=== PATIENT | female | born 1940 | race Caucasian/White ===

== ENCOUNTER 2018-04-16 13:05 | Inpatient (IN) | payer MEDICARE, BC ==
[~2018-04-16] VITALS: Ht 144.8 cm; Wt 78.7 kg
[2018-04-29 09:48] LABS: MEAN CELL VOLUME 77 fl (80.0-100.0); MEAN CORPUSCULAR HGB CONC 30 g/dl (33.0-37.0); MEAN PLATELET VOLUME 10.4 fl (7.4-10.4); PLATELET COUNT 371 K/mm3 (130-400); REDCELL DISTRIBUTION WIDTH-CV 17.4 % (11.5-14.5)
[2018-04-29 09:50] LABS: INR 1.8 (0.8-3.0); PROTHROMBIN TIME 20.2 SECONDS (9.7-12.8)
[2018-04-29 09:55] LABS: ALBUMIN 3.7 gm/dL (3.5-5.0); BILIRUBIN,TOTAL 0.6 mg/dL (0.0-1.0); CALCIUM 8.3 mg/dL (8.4-10.2); CREATININE, serum 0.75 mg/dL (0.52-1.25); POTASSIUM 3.5 mmol/L (3.4-5.0); TOTAL PROTEIN 7.9 gm/dL (6.4-8.2)
[2018-04-29 09:57] LABS: HEMATOCRIT 27.1 % (37.0-47.0); HEMOGLOBIN 8.2 g/dl (12.5-16.0); MEAN CORPUSCULAR HEMOGLOBIN 23 pg (27.0-31.0)
[2018-04-29 10:02] LABS: MAGNESIUM 0.9 mg/dL (1.6-2.3)
[2018-04-29 10:14] VITALS: BP 148/67; PULSE 95; TEMP 98.1
[2018-04-29] MEDS ORDERED: ELIQUIS 5MG PO (10:22)
[2018-04-29] MEDS ORDERED: NEXIUM 40MG40 MG PO (10:26)
[2018-04-29] MEDS ORDERED: K-DUR 10 MEQ T10 MEQ PO (10:27)
[2018-04-29] MEDS ORDERED: DIOVAN/HCT 12.51 TAB PO (10:28)
[2018-04-29] MEDS ORDERED: NORVASC 5MG5 MG/TAB PO (10:28)
[2018-04-29 10:31] LABS: BAND 10 % (0-10); BASOPHIL 1 % (0-2); EOSINOPHIL 1 % (0-4); LYMPHOCYTE 19 % (20.0-51.0); NEUTROPHILS 68 % (42.0-75.2); NUCLEATED RED BLOOD CELL 1 (0-6)
[2018-04-29 10:34] LABS: ANISOCYTOSIS 2+; PLATELET ESTIMATE NORMAL (NORMAL)
[2018-04-29 10:49] VITALS: BP 135/73; PULSE 99; TEMP 98.1
[2018-04-29 15:11] VITALS: BP 104/81; PULSE 80; TEMP 98.1
[2018-04-29 19:38] VITALS: BP 148/73; PULSE 83; TEMP 98.5
[2018-04-30] VITALS (13 sets, daily range): BP systolic 118–170; BP diastolic 57–81; PULSE 63–80; TEMP 98.1–99.6
[2018-04-30 07:29] LABS: MEAN CELL VOLUME 79 fl (80.0-100.0); MEAN CORPUSCULAR HGB CONC 30 g/dl (33.0-37.0); MEAN PLATELET VOLUME 9.9 fl (7.4-10.4); PLATELET COUNT 410 K/mm3 (130-400); RED BLOOD COUNT 3.54 M/mm3 (4.10-5.30); REDCELL DISTRIBUTION WIDTH-CV 18.1 % (11.5-14.5)
[2018-04-30 07:30] LABS: HEMATOCRIT 27.8 % (37.0-47.0); HEMOGLOBIN 8.2 g/dl (12.5-16.0); MEAN CORPUSCULAR HEMOGLOBIN 23 pg (27.0-31.0)
[2018-04-30 08:03] LABS: BAND 1 % (0-10); EOSINOPHIL 2 % (0-4); LYMPHOCYTE 11 % (20.0-51.0); METAMYELOCYTE 1 % (0-0); MYELOCYTE 3 % (0-0); NEUTROPHILS 80 % (42.0-75.2); PLATELET ESTIMATE INCREASED (NORMAL); POLYCHROMASIA 2+
[2018-04-30 08:04] LABS: ANISOCYTOSIS 2+
[2018-05-01 04:03] VITALS: PULSE 85; TEMP 98.6
[2018-05-01 08:18] VITALS: BP 144/74; PULSE 74; TEMP 98
[2018-05-01] MEDS ORDERED: BETAPACE 80MG80 MG PO (11:13)
[2018-05-01 13:16] VITALS: BP 132/81; PULSE 87; TEMP 98.7
== END 2018-05-01 12:30 | disposition home or self-care (01) | DRG 227 ==
LOC: MEDICAL 04-29 09:03
PROVIDERS: Nurse Practitioner
PROC: 0JH608Z Insertion of Defibrillator Generator into Chest Subcutaneous Tissue and Fascia, Open Approach (ICD-10-PCS; principal; 2018-04-30)
PROC: 02HK3KZ Insertion of Defibrillator Lead into Right Ventricle, Percutaneous Approach (ICD-10-PCS; 2018-04-30)
PROC: 02H63KZ Insertion of Defibrillator Lead into Right Atrium, Percutaneous Approach (ICD-10-PCS; 2018-04-30)
DX: I47.2 Ventricular tachycardia (principal); I50.32 Chronic diastolic (congestive) heart failure; I48.0 Paroxysmal atrial fibrillation; I11.0 Hypertensive heart disease with heart failure; D64.9 Anemia, unspecified; Z86.73 Personal history of transient ischemic attack (TIA), and cerebral infarction without residual deficits; Z79.01 Long term (current) use of anticoagulants; I34.0 Nonrheumatic mitral (valve) insufficiency
CPT/HCPCS: J0690; J2250; J3010; J3475; J7030

== ENCOUNTER 2019-06-03 09:46 | Inpatient (IN) | payer MEDICARE, MEDICAID ==
[~2019-06-03 09:46] MED LIST: BETAPACE 80MG80 MG PO; DIOVAN/HCT 12.51 TAB PO; ELIQUIS 5MG PO; K-DUR 10 MEQ T10 MEQ PO; NEXIUM 40MG40 MG PO; NORVASC 5MG5 MG/TAB PO
[2019-06-13 08:50] VITALS: BP 151/71; PULSE 77; TEMP 97.9
--- NOTE | 2019-06-13 09:15 | NUR ---
Pt admitted to medical unit rm 356, ambulates into with walker, steady gait, A&O x 3, hard of hearing. Heart sounds irregular. Breath sounds CTAB, BS active x 4. Edema to bilat lower ext. Pt reports pain with touch to bilat lower ext. No further needs reported. Call light in reach.
[2019-06-13 11:28] VITALS: BP 147/81; PULSE 72; TEMP 97.8
[2019-06-13 12:03] LABS: BASO % 0.4 % (0.0-2.0); EOS # 0.1 (0.0-0.7); EOS % 3.7 % (0-4.0); GRAN # 1.4 (1.4-6.5); GRAN % 58.2 % (42.2-75.2); LYMPH # 0.7 (1.2-3.4); LYMPH % 28.2 % (20.0-51.0); MEAN CELL VOLUME 100 fl (80.0-100.0); MEAN CORPUSCULAR HEMOGLOBIN 30 pg (27.0-31.0); MEAN CORPUSCULAR HGB CONC 30 g/dl (33.0-37.0); MEAN PLATELET VOLUME 11.3 fl (7.4-10.4); MONO # 0.2 (0.1-0.6); MONO % 9.1 % (1.7-9.3); PLATELET COUNT 196 K/mm3 (130-400); RED BLOOD COUNT 3.35 M/mm3 (4.10-5.30); REDCELL DISTRIBUTION WIDTH-CV 17.1 % (11.5-14.5)
[2019-06-13 12:04] LABS: HEMATOCRIT 33.5 % (37.0-47.0)
[2019-06-13 12:10] LABS: INR 1.3 (0.8-3.0); PROTHROMBIN TIME 15.4 SECONDS (9.7-12.8)
[2019-06-13 12:12] LABS: BILIRUBIN,TOTAL 0.4 mg/dL (0.0-1.0); CALCIUM 7.9 mg/dL (8.4-10.2); CREATININE, serum 1.2 (0.52-1.25); MAGNESIUM 1.2 mg/dL (1.6-2.3); POTASSIUM 4.6 mmol/L (3.4-5.0); TOTAL PROTEIN 6.9 gm/dL (6.4-8.2)
[2019-06-13 12:42] LABS: THYROID STIMULATING HORMONE 2.09 uIU/mL (0.465-4.680)
[2019-06-13] MEDS ORDERED: TYLENOL 325MG325 MG PO (15:40)
[2019-06-13] MEDS ORDERED: PROAIR HFA0.09 MG/AC IH (15:41)
[2019-06-13] MEDS ORDERED: AMOXICILLIN 50500 MG PO (15:42)
[2019-06-13] MEDS ORDERED: OSCAL W/VIT D250 MG PO (15:44)
[2019-06-13] MEDS ORDERED: COREG 6.256.25 MG/TA PO (15:44)
[2019-06-13] MEDS ORDERED: ELIQUIS 2.5 PO (15:45)
[2019-06-13] MEDS ORDERED: FERROUS SU325 MG/TAB PO (15:46)
[2019-06-13] MEDS ORDERED: LASIX 20MG TABL20 MG PO (15:46)
[2019-06-13] MEDS ORDERED: LIDODERM 5% PATC1 EA TP (15:48)
[2019-06-13] MEDS ORDERED: COZAAR 50MG50 MG/TAB PO (15:48)
[2019-06-13] MEDS ORDERED: MULTI VITAMINS1 TAB PO (15:50)
[2019-06-13] MEDS ORDERED: NATURAL MAGNES200 MG PO (15:50)
[2019-06-13] MEDS ORDERED: K-DUR20 MEQ PO (15:51)
[2019-06-13] MEDS ORDERED: PRIL40 PO (15:51)
[2019-06-13] MEDS ORDERED: PROBIOTIC ACID1 EAC3 PO (15:52)
[2019-06-13] MEDS ORDERED: ULTRAM 50MG TAB50 MG PO (15:53)
[2019-06-13] MEDS ORDERED: XIFAXAN550 MG PO (15:54)
[2019-06-13 17:47] VITALS: BP 153/78; PULSE 81; TEMP 97.2
--- NOTE | 2019-06-13 18:00 | NUR ---
Pt resting in bed, resp even and unlabored, denies needs or c/o at this time. Call light in reach.
[2019-06-13 20:55] VITALS: BP 146/74; PULSE 83; TEMP 98.2
--- NOTE | 2019-06-13 21:15 | NUR ---
Pt resting in room, patient denies pain a this time but does c/o pain when touching BLE. Patient has BLE edema, 2+. Pedal pulses palpable. Patient denies pain at this time. Pt has INT to left forearm. Amiodirone given to patient, tolerated fine. Patient has no other complaints at this time. Call light within reach, will continue to monitor
--- NOTE | 2019-06-14 00:08 | NUR ---
Patient resting in room. No c/o pain. No other concerns at this time. Call light within reach, will continue to monitor
[2019-06-14 01:29] VITALS: BP 125/54; PULSE 67
--- NOTE | 2019-06-14 03:38 | NUR ---
Patient resting in bed. Has had a small bm, brown color and formed. Patient does not have any complaints at this time. Denies pain. Call light within reach. Will continue to monitor
[2019-06-14 05:19] VITALS: BP 133/88; PULSE 73; TEMP 98
[2019-06-14 08:12] VITALS: BP 147/81; PULSE 66; TEMP 99.2
[2019-06-14 10:48] LABS: BASO % 0.6 % (0.0-2.0); EOS # 0.1 (0.0-0.7); EOS % 2.6 % (0-4.0); GRAN # 2.2 (1.4-6.5); GRAN % 63.1 % (42.2-75.2); LYMPH # 0.8 (1.2-3.4); LYMPH % 24.4 % (20.0-51.0); MEAN CELL VOLUME 98 fl (80.0-100.0); MEAN CORPUSCULAR HGB CONC 30 g/dl (33.0-37.0); MEAN PLATELET VOLUME 10.7 fl (7.4-10.4); MONO # 0.3 (0.1-0.6); MONO % 8.7 % (1.7-9.3); PLATELET COUNT 207 K/mm3 (130-400); RED BLOOD COUNT 3.24 M/mm3 (4.10-5.30)
[2019-06-14 10:51] LABS: HEMATOCRIT 31.7 % (37.0-47.0); HEMOGLOBIN 9.6 g/dl (12.5-16.0); MEAN CORPUSCULAR HEMOGLOBIN 30 pg (27.0-31.0)
--- NOTE | 2019-06-14 10:53 | NUR ---
Initial visit; Patient didn't understand at first but was receptive to Barley Steeper visit and prayer. Barley Steeper will follow up.
[2019-06-14 11:14] VITALS: BP 126/52; PULSE 73; TEMP 97.1
[2019-06-14 11:16] LABS: CALCIUM 7.9 mg/dL (8.4-10.2); CREATININE, serum 1.17 (0.52-1.25); POTASSIUM 4.1 mmol/L (3.4-5.0)
--- NOTE | 2019-06-14 11:25 | NUR ---
Nickel Operator contacted Mylene at [facility] to discuss patient. 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 Mylene reports patient does not have family, however she has a court appointed guardian, Tran Solis (ph#[phone]). ARINA requested Mylene fax over guardianship documents. ARINA contacted Tran however the connection was bad and Tran advised she would call back. ARINA will fax updates to [facility] and continue to follow.
--- NOTE | 2019-06-14 11:48 | NUR ---
Attempted patient's PFT at 0700 AM. Nuc Med had already taken her to VQ scan. Attempted to do PFT again at 10:45, patient refused. Patient states her back is sore and she cannot stand to be away for 45 min. Patient states she is hungry and is mad at our kitchen staff and lack of seasoning. I told patient we would attempt again tomorrow. She states not in the morining she is too sore and tired. I told her tomorrow afternoon then. Jamil Meza, SEAM HAMMERER
--- NOTE | 2019-06-14 14:18 | NUR ---
Art Class Model spoke with Tranvinay Solis, Guardian (ph#[phone]) about discharge plan. Tran confirms that the plan is for the patient to return to [facility]. ARINA explained patient choice form and Tran selected [facility]. Tran provided SW verbal consent and ARINA placed the choice form in the patient's chart. ARINA will continue to follow.
[2019-06-14 15:36] VITALS: BP 126/58; PULSE 70; TEMP 98.7
--- NOTE | 2019-06-14 17:00 | NUR ---
Pt refusing to take sched afternoon medications d/t feeling that she was lied to about taking more pills today after several were given this morning. This nurse trying to explain the importance of the Amiodarone and that this medication is the reason she is here, however, pt continues to yell and refuse to take any pills. aging department supervisor attempts to discuss the situation with the pt and convince her to take the Amiodarone. Pt adamantly refusing. Provider notified, states if pt continues to refuse this medication she will need to go back home. Will attempt to administer next dose tonight.
--- NOTE | 2019-06-14 18:30 | NUR ---
Pt insisting on having milk products, asks to remove the lactose allergy. Chief Of Production aware. Allergy removed.
--- NOTE | 2019-06-14 21:00 | NUR ---
Report received from CRISTIAN Knox. Patient resting in bed. Patient refuses to take any of her PM medications, including the amiodarone. Patient also refusing to allow nursing staff to check her vitals. Upon switching shifts, the patient was very unhappy about the food that she was provided with. She would not allow this nurse to complete the shift assessment. Another nurse also attempted to have the patient take the medications, but she continued to refuse. The patient does have her call light within reach.
[2019-06-14 21:02] VITALS: BP 140/57; PULSE 78; TEMP 98.5
[2019-06-15 03:08] LABS: RHEUMATOID FACTOR-SCREEN <15 IU/mL (0-29)
--- NOTE | 2019-06-15 04:14 | NUR ---
Patient is refusing to wear tele box. States "I was told I only have to wear this for a couple hours, not three days." This nurse informed the patient that the doctor put the order in for her to be on tele monitoring, but she insisted it was not necessary. Tele called and informed that the patient is refusing to wear her tele at this time.
[2019-06-15 04:51] VITALS: BP 156/77; PULSE 78; TEMP 97.4
--- NOTE | 2019-06-15 05:48 | NUR ---
Patient did allow nursing staff to obtain 0400 vitals. Patient requests help getting up from the toilet and getting back into bed, but otherwise, independent in room. Unsure of what the plan is for this patient. Call light within reach.
[2019-06-15 06:43] LABS: BASO % 0.7 % (0.0-2.0); EOS # 0.1 (0.0-0.7); EOS % 2.8 % (0-4.0); GRAN # 1.6 (1.4-6.5); GRAN % 56.7 % (42.2-75.2); LYMPH # 0.8 (1.2-3.4); LYMPH % 28.4 % (20.0-51.0); MEAN CELL VOLUME 98 fl (80.0-100.0); MEAN CORPUSCULAR HGB CONC 30 g/dl (33.0-37.0); MEAN PLATELET VOLUME 10.6 fl (7.4-10.4); MONO # 0.3 (0.1-0.6); PLATELET COUNT 185 K/mm3 (130-400); RED BLOOD COUNT 3.03 M/mm3 (4.10-5.30); REDCELL DISTRIBUTION WIDTH-CV 16.9 % (11.5-14.5)
[2019-06-15 06:45] LABS: INR 1.2 (0.8-3.0); PROTHROMBIN TIME 13.5 SECONDS (9.7-12.8)
[2019-06-15 06:46] LABS: HEMATOCRIT 29.8 % (37.0-47.0); HEMOGLOBIN 8.9 g/dl (12.5-16.0); MEAN CORPUSCULAR HEMOGLOBIN 29 pg (27.0-31.0)
[2019-06-15 06:56] LABS: CALCIUM 8.3 mg/dL (8.4-10.2); CREATININE, serum 1.15 (0.52-1.25); MAGNESIUM 1.5 mg/dL (1.6-2.3); POTASSIUM 4.1 mmol/L (3.4-5.0)
--- NOTE | 2019-06-15 07:09 | NUR ---
Report given to CRISTIAN Cordova
--- NOTE | 2019-06-15 08:00 | NUR ---
PATIENT IS A&O. VSS. PATIENT REFUSING AM MEDS UNTIL ROUNDS. HEAD TO TOE ASSESSMENT COMPLETE. PATIENT ALSO REFUSING TO WEAR TELE AT THIS TIME.
--- NOTE | 2019-06-15 10:15 | NUR ---
AT BEDSIDE. PATIENT NOW AGREES TO TAKE SOME OF HER IMPORTANT AM MEDS. PATIENT'S MAIN COMPLAINTS IS THE FOOD. PATIENT DOESN'T LIKE THAT SHE CAN'T ORDER HER OWN FOOD AND IS LOW SODIUM. ALSO UNHAPPY THE KITCHEN DOESN'T OFFER LEMON WITH HER TEA & WATER. PATIENT DIFFICULT TO UNDERSTAND AT TIME DUE TO THICK [facility] ACCENT. PATIENT GIVEN HOT TEA WITH SUGAR FOR NOW.
[2019-06-15 11:58] VITALS: BP 123/55; PULSE 67; TEMP 98.7
--- NOTE | 2019-06-15 14:02 | NUR ---
ARINA faxed updates to [facility]. ARINA to continue to follow.
--- NOTE | 2019-06-15 14:25 | NUR ---
PATIENT IS VERY DIFFICULT WITH TAKING MEDS. PATIENT STILL REFUSING MOST CARES. RT AT BEDSIDE TO TRY AND DO PFT TEST, PATIENT REFUSED AGAIN.
--- NOTE | 2019-06-15 14:30 | NUR ---
Attempted PFT at this time. Patient refused. Patient is complaining of room temp. as well as having too hot of tea and then too cold. Explained PFT procedure patient states she does not want to be taken anywhere. Patient given warm blanket at this time. PFT will not be completed today. Jamil Meza, DIESEL INSTRUCTOR
[2019-06-15 16:20] VITALS: BP 124/56; PULSE 69; TEMP 98.3
[2019-06-15 16:21] LABS: ANA SCREEN with REFLEX Negative (Negative)
[2019-06-15 21:00] VITALS: BP 134/59; PULSE 67; TEMP 98.2
[2019-06-16] VITALS (7 sets, daily range): BP systolic 135–159; BP diastolic 60–80; PULSE 64–72; TEMP 97.7–98.1
--- NOTE | 2019-06-16 00:12 | NUR ---
Patient has been resting well tonight. Patient refused all medications except for the antibiotic (amoxicillin) and the "heart pills" (amiodarone and eliquis). Patient did take these and allowed this nurse to put on her lidocaine patch to her lower back after taking off the old patch. Patient requires one assist to ambulate to the bathroom. Noted to be incontinent of urine occasionally. Wears briefs for protection. Will continue to monitor patient.
--- NOTE | 2019-06-16 07:37 | NUR ---
This nurse came on unit at 0700 and received shift report from primary nurse, Raymond. Will assist Raymond with cares for this patient today.
[2019-06-16 07:56] LABS: CALCIUM 8.2 mg/dL (8.4-10.2); CREATININE, serum 1.38 (0.52-1.25); MAGNESIUM 1.6 mg/dL (1.6-2.3); POTASSIUM 3.9 mmol/L (3.4-5.0)
[2019-06-16 07:59] LABS: INR 1.2 (0.8-3.0); PROTHROMBIN TIME 14.3 SECONDS (9.7-12.8)
[2019-06-16 08:28] LABS: BASO % 0.3 % (0.0-2.0); EOS # 0.1 (0.0-0.7); EOS % 2.6 % (0-4.0); GRAN # 1.8 (1.4-6.5); GRAN % 60.9 % (42.2-75.2); LYMPH # 0.8 (1.2-3.4); LYMPH % 25.7 % (20.0-51.0); MEAN CELL VOLUME 99 fl (80.0-100.0); MEAN CORPUSCULAR HGB CONC 30 g/dl (33.0-37.0); MEAN PLATELET VOLUME 11.4 fl (7.4-10.4); MONO # 0.3 (0.1-0.6); MONO % 10.2 % (1.7-9.3); PLATELET COUNT 213 K/mm3 (130-400); RED BLOOD COUNT 3.08 M/mm3 (4.10-5.30); REDCELL DISTRIBUTION WIDTH-CV 17.1 % (11.5-14.5)
[2019-06-16 08:29] LABS: HEMATOCRIT 30.5 % (37.0-47.0); HEMOGLOBIN 9.1 g/dl (12.5-16.0); MEAN CORPUSCULAR HEMOGLOBIN 30 pg (27.0-31.0)
--- NOTE | 2019-06-16 09:42 | NUR ---
Procedure aborted today as pt was not able to lay flat on table due to back pain and shortness of breath. Pt yelling and screaming with any physical stimuli and did not want to proceed. Dr. Jamison contaced and came down to assess the patient. Dr. Jamison explained the risks and benefits of proceeding vs cancelling and the patient verbalized that she did not want to proceed today due to pain. Order received to abort the procedure at this time. Pt transferred back to her inpatient bed and placed back on telemetry. Pt transported back to room 356 and bedside report given to Raymond FOSTER.
--- NOTE | 2019-06-16 09:50 | NUR ---
Pt in bed resting, no C/O pain at this time, shift assessments complete, left Pt call light in reach, bed in lowest position, alarm on.
--- NOTE | 2019-06-16 13:45 | NUR ---
ARINA received the patient's Letters of Guardianship and Conservatorship, via email, from Nilda at [facility]. SW placed in the patient's chart. Tran Solis was granted Guardianship and Conservatorhip of the patient. The patient is to tentatively discharge tomorrow, 06/17. ARINA notified Mylene at [facility]. SW to fax [place] updates. ARINA contacted and updated Tran. Tran is in agreeance with the patient discharging tomorrow. ARINA explained the IM form to Tran. Tran verbalized understanding and gave SW her verbal consent. SW to continue to follow.
--- NOTE | 2019-06-16 13:51 | NUR ---
Primary nurse was assisted with [id number] patient care by [employer] [employer] [facility] Mickie G[facility]mez and [employer] instructor Mirta Jordan RN-.
[2019-06-16 16:13] LABS: ANGIOTENSIN CONVERTING ENZYME 37 U/L (16 - 85)
--- NOTE | 2019-06-16 18:16 | NUR ---
Pt resting in room, Pt pulled both IV sites on her right side, new IV site established on left forearm, VS have remained stable.
[2019-06-17 04:00] VITALS: BP 153/68; PULSE 69; TEMP 97.5
[2019-06-17 07:55] LABS: GRAN # 2.6 (1.4-6.5); HEMATOCRIT 27.5 % (37.0-47.0); HEMOGLOBIN 8.2 g/dl (12.5-16.0); LYMPH # 0.4 (1.2-3.4); MEAN CELL VOLUME 98 fl (80.0-100.0); MEAN CORPUSCULAR HEMOGLOBIN 29 pg (27.0-31.0); MEAN CORPUSCULAR HGB CONC 30 g/dl (33.0-37.0); MONO # 0.2 (0.1-0.6); MONO % 7.4 % (1.7-9.3); PLATELET COUNT 193 K/mm3 (130-400); REDCELL DISTRIBUTION WIDTH-CV 16.9 % (11.5-14.5)
[2019-06-17 08:04] LABS: INR 1.2 (0.8-3.0); PROTHROMBIN TIME 14.4 SECONDS (9.7-12.8)
[2019-06-17 08:05] LABS: CALCIUM 8.7 mg/dL (8.4-10.2); CREATININE, serum 1.23 (0.52-1.25); MAGNESIUM 1.6 mg/dL (1.6-2.3)
[2019-06-17 08:14] VITALS: BP 163/76; PULSE 60; TEMP 97.4
--- NOTE | 2019-06-17 09:23 | NUR ---
Pt awake and alert, talkative, no C/O pain at this time, shift assessments complete, left Pt call light in reach, bed in lowest position.
--- NOTE | 2019-06-17 11:29 | NUR ---
The patient is to discharge today, 06/17, back to [facility] for a skilled stay. Transportation was scheduled for 1300, via [place]. SW informed the patient, patient's nurse, and the patient's guardian (Tran) via phone. They were all in agreeance to time. No additional needs at this time.
[2019-06-17] MEDS ORDERED: PACERONE200 MG PO (11:37)
[2019-06-17] MEDS ORDERED: COREG12.5 MG PO (11:38)
[2019-06-17 12:22] VITALS: BP 152/78; PULSE 62; TEMP 98
[2019-06-17 12:45] VITALS: BP 152/78; PULSE 62; TEMP 98
--- NOTE | 2019-06-17 13:29 | NUR ---
Pt discharged to [facility], left via their transportation.
--- NOTE | 2019-06-17 14:01 | NUR ---
Primary nurse was assisted with [id number] patient care by [employer] [employer] [facility] Mickie G[facility]mez and [employer] instructor Mirta Jordan RN-.
[2019-06-17 23:23] LABS: ANTISCLERODERMA-70 AB XXX
== END 2019-06-17 13:30 | disposition home or self-care (01) | DRG 310 ==
LOC: MEDICAL 06-06 09:45
PROVIDERS: Internal Medicine Pulmonary Disease; ADMIT Internal Medicine Cardiovascular Disease
DX: I48.0 Paroxysmal atrial fibrillation (principal); I49.02 Ventricular flutter; I47.1 Supraventricular tachycardia; I25.10 Atherosclerotic heart disease of native coronary artery without angina pectoris; I10 Essential (primary) hypertension; I45.10 Unspecified right bundle-branch block; F17.210 Nicotine dependence, cigarettes, uncomplicated; I27.20 Pulmonary hypertension, unspecified; I07.1 Rheumatic tricuspid insufficiency; K21.9 Gastro-esophageal reflux disease without esophagitis; B18.2 Chronic viral hepatitis C; H91.90 Unspecified hearing loss, unspecified ear; Z79.2 Long term (current) use of antibiotics; Z79.891 Long term (current) use of opiate analgesic; Z88.6 Allergy status to analgesic agent
CPT/HCPCS: A9540; A9567; J1200; J1940; J2930; J3475